=== PATIENT | male | born 1965 ===

== ENCOUNTER 2017-10-05 21:04 | Emergency (ER) | payer MEDICAID ==
[2017-10-05 21:11] VITALS: O2SAT 100
[2017-10-06 00:40] LABS: BASO % 0.6 % (0.0-2.0); EOS # 0.1 K/uL (0.0-0.7); EOS % 1.4 % (0.0-4.0); HEMOGLOBIN 11.7 g/dL (12.0-18.0); LYMPH # 2.6 K/uL (1.0-4.3); LYMPH % 42.9 % (20.0-40.0); MEAN CELL VOLUME 96.6 fl (80.0-94.0); MEAN CORPUSCULAR HEMOGLOBIN 32.4 pg (27.0-31.0); MEAN CORPUSCULAR HGB CONC 33.6 g/dL (33.0-37.0); MEAN PLATELET VOLUME 6.9 fl (7.2-11.7); MONO # 0.7 K/uL (0.0-0.8); MONO % 11.4 % (0.0-10.0); NEUT # 2.6 K/uL (1.8-7.0); NEUT % 43.7 % (50.0-75.0); NRBC % 0.1 % (0.0-0.0); RBC 3.62 Mil/uL (4.40-5.90); RED CELL DISTRIBUTION WIDTH 13.9 % (11.5-14.5); WHITE BLOOD COUNT 5.9 K/uL (4.8-10.8)
[2017-10-06 00:45] LABS: URINE BILIRUBIN NEGATIVE (NEGATIVE); URINE BLOOD SMALL (NEGATIVE); URINE CLARITY CLEAR (Clear); URINE COLOR COLORLESS (YELLOW); URINE GLUCOSE (UA) NEG (Normal); URINE LEUKOCYTE ESTERASE NEG Leu/uL (Negative); URINE NITRATE NEGATIVE (NEGATIVE); URINE PROTEIN NEGATIVE (NEGATIVE); URINE UROBILINOGEN 0.2-1.0 mg/dL (0.2-1.0)
[2017-10-06 00:48] LABS: ALB/GLOB RATIO 1.1 (1.0-2.1); ALBUMIN 3.9 g/dL (3.5-5.0); ALT/SGPT 33 U/L (21-72); AST/SGOT 35 U/L (17-59); BLOOD UREA NITROGEN 13 mg/dl (9-20); CALCIUM 9.9 mg/dL (8.4-10.2); GFR AFRICAN-AMERICAN > 60; GFR NON-AFRICAN AMERICAN > 60; LIPASE 462 U/L (23-300)
[2017-10-06 00:52] VITALS: TEMP 98.1
[2017-10-06 02:52] VITALS: BP 157/91; PULSE 74; RESP 15
--- NOTE | 2017-10-06 03:07 | ED PDOC ---
HPI: Abdomen Time Seen by Provider: 10/05/17 23:06 Chief Complaint (Nursing): Abdominal Pain Chief Complaint (Provider): Abdominal Pain History Per: Patient Onset/Duration Of Symptoms: Other (x3 weeks) Current Symptoms Are (Timing): Still Present Associated Symptoms: denies: Fever, Nausea, Vomiting, Diarrhea Additional Complaint(s): 52 year old male presents to ED with complaints of abdominal pain x3 weeks and has a past medical history of HTN and abdominal pain. (-) nausea, vomiting, diarrhea, fever, cough, SOB, or chest pain. Notes having an endoscopy in February 2017 that was normal. Notes presenting to the ED today because pain worsened, but upon ED arrival patient notes resolution of symptoms. Of note, patient is hypertensive in ED due to taking HTN medication [employer]. Denies taking any medicine for the pain. PCP: Freddy Cruz Past Medical History Reviewed: Historical Data, Nursing Documentation, Vital Signs Vital Signs: Last Vital Signs Temp 98.1 F 10/06/17 00:51 Pulse 74 10/06/17 02:52 Resp 15 10/06/17 02:52 BP 157/91 H 10/06/17 02:52 Pulse Ox 100 10/06/17 02:52 - Medical History PMH: HTN - Surgical History Surgical History: Endoscopy - Family History Family History: States: Unknown Family Hx - Living Arrangements Living Arrangements: With Family - Home Medications Home Medications: Ambulatory Orders Medication Instructions Recorded MetFORMIN [glucoPHAGE] 500 mg PO BID #20 tab 05/20/14 Polyethylene Glycol 3350 [Miralax] 17 g PO QAM PRN #7 pkg 10/06/17 - Allergies Allergies/Adverse Reactions: Allergies Allergy/AdvReac Type Severity Reaction Status Date / Time No Known Allergies Allergy Verified 05/20/14 02:16 Review of Systems ROS Statement: Except As Marked, All Systems Reviewed And Found Negative Constitutional: Negative for: Fever Cardiovascular: Negative for: Chest Pain Respiratory: Negative for: Cough, Shortness of Breath Gastrointestinal: Positive for: Abdominal Pain. Negative for: Nausea, Vomiting , Diarrhea Physical Exam - Reviewed Nursing Documentation Reviewed: Yes Vital Signs Reviewed: Yes - Physical Exam Appears: Positive for: Non-toxic, No Acute Distress Skin: Positive for: Normal Color, Warm, Dry Neck: Positive for: Normal Cardiovascular/Chest: Positive for: Regular Rate, Rhythm. Negative for: Murmur Respiratory: Positive for: Normal Breath Sounds. Negative for: Respiratory Distress Gastrointestinal/Abdominal: Positive for: Soft. Negative for: Tenderness Neurologic/Psych: Positive for: Alert, Oriented. Negative for: Motor/Sensory Deficits - Laboratory Results Result Diagrams: 10/06/17 00:36 10/06/17 00:36 - ECG O2 Sat by Pulse Oximetry: 100 (RA) Pulse Ox Interpretation: Normal Medical Decision Making Medical Decision Makin Initial impression: abdominal pain Initial plan: * EKG * Labs * Lipase * UDip * XR ABD W/CHEST * UA 0245 XR: NAD, copious stool Labs reviewed: no clinically significant abnormalities Patient will be discharged home with Miralax. Return precautions given. Dx: constipation Condition: stable Scribe Attestation: Documented by Desiree Jacob acting as a scribe for Matthew Meyer MD. DO Scribe Attestation: All medical record entries made by the Scribe were at my direction and personally dictated by me. I have reviewed the chart and agree that the record accurately reflects my personal performance of the history, physical exam, medical decision making, and the department course for this patient. I have also personally directed, reviewed, and agree with the discharge instructions and disposition. Disposition - Clinical Impression Clinical Impression: Abdominal pain, Constipation Counseled Patient/Family Regarding: Studies Performed, Diagnosis - Disposition Referrals: Freddy Cruz MD [Primary Care Provider] - Disposition: Routine/Home Disposition Time: 02:45 Condition: STABLE Prescriptions: Polyethylene Glycol 3350 [Miralax] 17 g PO QAM PRN #7 pkg PRN Reason: Constipation Instructions: Constipation in Adults Forms: [facility] (Yakut) Print Language: SAUDI ARABIAN
--- NOTE | 2017-10-06 11:11 | RAD ---
HISTORY: Abdominal pain COMPARISON: No prior. FINDINGS: BOWEL: There is large amount of stool in the colon. No bowel dilatation or obstruction. No free intraperitoneal air. BONES: Normal. OTHER FINDINGS: Ovoid radiodensity in the right upper quadrant is most compatible with a gallstone. The lungs are well inflated and clear. The cardiomediastinal silhouette is normal. IMPRESSION: Constipation. Nonobstructive bowel gas pattern.
--- NOTE | 2017-10-06 21:46 | CARD ---
APPROVED REPORT EKG Measurement Heart [id number] <Conclusion> Normal sinus rhythm Minimal voltage criteria for LVH, may be normal variant ST & T wave abnormality, consider inferior ischemia Abnormal ECG
== END 2017-10-06 03:15 | disposition home or self-care (01) ==
LOC: H.ER 21:04
DX: K59.00 Constipation, unspecified (principal); I10 Essential (primary) hypertension; Z79.84 Long term (current) use of oral hypoglycemic drugs